=== PATIENT | male | born 1960 | race Caucasian/White ===

== ENCOUNTER 2017-04-18 20:07 | Emergency (ER) | payer MEDICARE, MEDICAID ==
[2017-04-18] MEDS ORDERED: ACETAMINOPHEN 325 MG TABLET PO ONE (20:59)
--- NOTE | 2017-04-18 21:30 | ER Document Report ---
ED Extremity Problem, Upper - General Chief Complaint: Arm Injury Stated Complaint: ARM PAIN Time Seen by Provider: 04/18/17 20:52 Information source: Parent TRAVEL OUTSIDE OF THE [place] IN LAST 30 DAYS: No - HPI Patient complains to provider of: Injury - hit his arm on a tool box, h/o osteoporosis, Right, Forearm Onset: Just prior to arrival Recent injury: Yes Where: Home Quality of pain: Achy Exacerbated by: Movement Relieved by: Rest - Related Data Allergies/Adverse Reactions: No Known Allergies Allergy (Verified 04/18/17 20:31) Past Medical History - Social History Smoking Status: Never Smoker Chew tobacco use (# tins/day): No Frequency of alcohol use: None Drug Abuse: None Family History: None Patient has suicidal ideation: No Patient has homicidal ideation: No - Past Medical History Cardiac Medical History: Denies: Hx Heart Attack, Hx Hypertension Pulmonary Medical History: Denies: Hx Asthma Neurological Medical History: Denies: Hx Cerebrovascular Accident, Hx Seizures Endocrine Medical History: Reports: Hx Diabetes Mellitus Type 1 Renal/ Medical History: Denies: Hx Peritoneal Dialysis GI Medical History: Denies: Hx Hepatitis, Hx Hiatal Hernia, Hx Ulcer Infectious Medical History: Denies: Hx Hepatitis Past Surgical History: Reports: Hx Orthopedic Surgery - bilat wrist, Hx Urinary Tract Surgery - suprapubic cath. Denies: Hx Open Heart Surgery, Hx Pacemaker - Immunizations Hx Diphtheria, Pertussis, Tetanus Vaccination: No Review of Systems - Review of Systems Constitutional: No symptoms reported Musculoskeletal: See HPI -: Yes All other systems reviewed and negative Physical Exam - Vital signs Vitals: Temp Pulse Resp BP Pulse Ox 98.4 F 118 H 16 140/90 H 100 04/18/17 20:31 04/18/17 20:31 04/18/17 20:31 04/18/17 20:31 04/18/17 20:31 - General General appearance: Appears well, Alert In distress: None - Cardiovascular Pulses: Normal: Radial Normal capillary refill: Yes - Extremities General upper extremity: Normal inspection, Tender - over mid shaft ulna without deformity, Normal strength, Normal temperature. 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 History of intellectual disability so history is per mother. Evidence of midshaft ulnar fracture nondisplaced on the right forearm. Patient placed in a reverse sugar tong splint and sling. Patient discharged home and to follow-up with their orthopedist. - Vital Signs Vital signs: Temp Pulse Resp BP Pulse Ox 98.4 F 118 H 16 140/90 H 100 04/18/17 20:31 04/18/17 20:31 04/18/17 20:31 04/18/17 20:31 04/18/17 20:31 - Diagnostic Test Radiology reviewed: Image reviewed, Reports reviewed Discharge - Discharge Clinical Impression: Ulnar fracture Qualifiers: Encounter type: initial encounter Ulna location: shaft Fracture type: closed Fracture morphology: transverse Fracture alignment: nondisplaced Laterality: right Qualified Code(s): S52.224A - Nondisplaced transverse fracture of shaft of right ulna, initial encounter for closed fracture Condition: Good Disposition: HOME, SELF-CARE Instructions: Fractured Radius and Ulna ([facility]), Splint Precautions ([facility]), Acetaminophen, Use of Vlvw-Odw-Rrctflh Ibuprofen ([facility]) Additional Instructions: Please make an appointment to see your orthopedist to be seen in 1-2 weeks Forms: Elevated Blood Pressure Referrals: AMEYA SHIPLEY MD [Primary Care Provider] - Follow up as needed
--- NOTE | 2017-04-18 21:37 | RADIOLOGY REPORT (SQ) ---
EXAM DESCRIPTION: FOREARM RIGHT COMPLETED DATE/TIME: 04/18/2017 9:16 pm REASON FOR STUDY: hit his arm on a metal tool box, pain COMPARISON: None. NUMBER OF VIEWS: Two views. TECHNIQUE: Two radiographic images acquired of the right forearm, including elbow and wrist in at le ast one projection. LIMITATIONS: None. FINDINGS: MINERALIZATION: Normal. BONES: Multiple nondisplaced fractures are seen involving the distal shaft of the right ulna. No sig nificant displacement of the fracture fragments identified. No other fractures are identified. SOFT TISSUES: Soft tissue swelling about the forearm. No radiopaque foreign body pre OTHER: No other significant finding. IMPRESSION: Nondisplaced fractures involving the distal shaft of the right ulna. No other fractures identified. Soft tissue swelling about the forearm. No radiopaque foreign body. TECHNICAL DOCUMENTATION: JOB ID: [id number] [employer]- All Rights Reserved
[2017-04-18 22:11] VITALS: BP 138/76
== END 2017-04-18 22:08 | disposition home or self-care (01) ==
LOC: ER 20:07
DX: S52.224A Nondisplaced transverse fracture of shaft of right ulna, initial encounter for closed fracture (principal); W22.09XA Striking against other stationary object, initial encounter; Y92.009 Unspecified place in unspecified non-institutional (private) residence as the place of occurrence of the external cause; E10.9 Type 1 diabetes mellitus without complications
CPT/HCPCS: 99283; 73090; L3650; A9270

== ENCOUNTER 2019-07-15 11:07 | Emergency (ER) | payer MEDICARE, MEDICAID ==
[2019-07-15] MEDS ORDERED: NORMAL SALINE 1000 ML 1,000 ML IV ONE (11:27)
--- NOTE | 2019-07-15 11:29 | ER Document Report ---
ED Medical Screen (RME) - General Chief Complaint: Urinary Problem Stated Complaint: UNABLE TO URINATE Time Seen by Provider: 07/15/19 11:26 Primary Care Provider: AMEYA SHIPLEY MD [Primary Care Provider] - Follow up as needed Information source: Parent Notes: Patient presents with family member with reports of leg cramps for the past 3 days to the right thigh. Patient also has had elevated blood sugar running in the 2-300 range which is not normal for him. Patient has also had decreased urine output to his suprapubic catheter bag. Family states that patient did void from the penis. hx: Mild cerebral palsy, MR, diabetes, tremor, suprapubic cath, neurogenic bladder I have greeted and performed a rapid initial assessment of this patient. A comprehensive ED assessment and evaluation of the patient, analysis of test results and completion of the medical decision making process will be conducted by additional ED providers. TRAVEL OUTSIDE OF THE [place] IN LAST 30 DAYS: No - Related Data Allergies/Adverse Reactions: No Known Allergies Allergy (Verified 07/15/19 11:25) Past Medical History - Social History Chew tobacco use (# tins/day): No Frequency of alcohol use: None Drug Abuse: None - Past Medical History Cardiac Medical History: Denies: Hx Heart Attack, Hx Hypertension Pulmonary Medical History: Denies: Hx Asthma Neurological Medical History: Denies: Hx Cerebrovascular Accident, Hx Seizures Endocrine Medical History: Reports: Hx Diabetes Mellitus Type 1 Renal/ Medical History: Denies: Hx Peritoneal Dialysis GI Medical History: Denies: Hx Hepatitis, Hx Hiatal Hernia, Hx Ulcer Infectious Medical History: Denies: Hx Hepatitis Past Surgical History: Reports: Hx Orthopedic Surgery - bilat wrist, Hx Urinary Tract Surgery - suprapubic cath. Denies: Hx Open Heart Surgery, Hx Pacemaker - Immunizations Hx Diphtheria, Pertussis, Tetanus Vaccination: No Physical Exam - General Notes: Right thigh tenderness Doctor's Discharge - Discharge Referrals: AMEYA SHIPLEY MD [Primary Care Provider] - Follow up as needed
[2019-07-15 12:27] LABS: VENOUS BLOOD BASE EXCESS 2.5 mmol/L; VENOUS BLOOD HCO3 27.3 mmol/L (20-32); VENOUS BLOOD PCO2 42.6 mmHg (35-63); VENOUS BLOOD PH 7.42 (7.30-7.42)
[2019-07-15 12:33] LABS: ABSOLUTE EOSINOPHILS # (AUTO) 0.2 10^3/uL (0.0-0.6); ABSOLUTE LYMPHOCYTES (AUTO) 1.6 10^3/uL (0.5-4.7); ABSOLUTE MONOCYTES (AUTO) 0.8 10^3/uL (0.1-1.4); ABSOLUTE NEUT (AUTO) 5.9 10^3/uL (1.7-8.2); BASOPHILS % (AUTO) 0.5 % (0-2); EOSINOPHILS % (AUTO) 1.8 % (0-6); HEMATOCRIT 45.5 % (37.9-51.0); HEMOGLOBIN 14.9 g/dL (13.5-17.0); LYMPHOCYTES % (AUTO) 18.6 % (13-45); MEAN CORPUSCULAR HEMOGLOBIN 27.8 pg (27.0-33.4); MEAN CORPUSCULAR HGB CONC 32.8 g/dL (32.0-36.0); MEAN CORPUSCULAR VOLUME 85 fl (80-97); MONOCYTES % (AUTO) 9.7 % (3-13); PLATELET COUNT 208 10^3/uL (150-450); RED BLOOD COUNT 5.37 10^6/uL (4.35-5.55); RED CELL DISTRIBUTION WIDTH 14.1 % (11.5-14.0); SEGMENTED NEUTROPHILS % (AUTO) 69.4 % (42-78); TOTAL CELLS COUNTED % (AUTO) 100 %; WHITE BLOOD COUNT 8.6 10^3/uL (4.0-10.5)
[2019-07-15 12:43] LABS: ALBUMIN 4.3 g/dL (3.5-5.0); ALKALINE PHOSPHATASE 136 U/L (38-126); ANION GAP 9 (5-19); ASPARTATE AMINO TRANSFERASE 21 U/L (17-59); BILIRUBIN,DIRECT 0.1 mg/dL (0.0-0.4); BILIRUBIN,TOTAL 0.8 mg/dL (0.2-1.3); BLOOD UREA NITROGEN 18 mg/dL (7-20); CALCIUM 10.1 mg/dL (8.4-10.2); CARBON DIOXIDE 29 mmol/L (22-30); CHLORIDE 101 mmol/L (98-107); CREATINE KINASE 51 U/L (55-170); GLUCOSE 289 mg/dL (75-110); POTASSIUM 4.4 mmol/L (3.6-5.0); TOTAL PROTEIN 7.1 g/dL (6.3-8.2)
--- NOTE | 2019-07-15 14:07 | ER Document Report ---
ED General - General Chief Complaint: Urinary Problem Stated Complaint: UNABLE TO URINATE Time Seen by Provider: 07/15/19 11:26 Primary Care Provider: AMEYA SHIPLEY MD [Primary Care Provider] - Follow up in 3-5 days TRAVEL OUTSIDE OF THE [place] IN LAST 30 DAYS: No - HPI Notes: Patient is a 58-year-old male with cerebral palsy and mild MR that presents to the emergency department for chief complaint of decreased urination and hyperglycemia. Patient has a suprapubic Collins catheter for history of neurogenic bladder. His mother is providing HPI. He has reportedly had decreased urine output into the catheter and has voided from his urethra as well. He has not had any associated fevers, chills, nausea or vomiting. She states that currently his catheter bag seems full like normal. Patient has also been complaining of cramping in his right thigh for the last 3 days. The cramping is sharp and intermittent. He has had relief with Tylenol, ibuprofen and massage at home. Patient's mother is concerned that his blood sugars have been greater than 200 for the last 3 days as well. He has insulin-dependent diabetes and has been taking his medications as prescribed. Past Medical History:Mild cerebral palsy, MR, diabetes, tremor, suprapubic cath, neurogenic bladder Past Surgical History: Superpubic catheter Social History: Lives with mother who provides care. No tobacco or alcohol use Family History: Reviewed and noncontributory for presenting illness Allergies: Reviewed, see documented allergy list. REVIEW OF SYSTEMS: Unable to obtain because of MR PHYSICAL EXAMINATION: Vital signs reviewed, nursing noted reviewed. GENERAL: Well-appearing, well-nourished and in no acute distress. HEAD: Atraumatic, normocephalic. EYES: Eyes appear normal, extraocular movements intact, sclera anicteric, conjunctiva are normal. ENT: nares patent, oropharynx clear without exudates. Moist mucous membranes. NECK: Normal range of motion, supple without lymphadenopathy LUNGS: Breath sounds clear to auscultation bilaterally and equal. No wheezes rales or rhonchi. HEART: Regular rate and rhythm without murmurs ABDOMEN: Soft, nontender, normoactive bowel sounds. No rebound, guarding, or rigidity. No masses appreciated. EXTREMITIES: Anterior and lateral right thigh tenderness and muscle spasm with normal range of motion of right hip knee and ankle. No long bone deformity or tenderness. No pitting or edema. NEUROLOGICAL: No focal neurological deficits. Moves all extremities spontaneously Motor and sensory grossly intact on exam. PSYCH: Normal mood, normal affect. SKIN: Warm, Dry, normal turgor, no rashes or lesions noted on exposed skin - Related Data Allergies/Adverse Reactions: No Known Allergies Allergy (Verified 07/15/19 11:25) Past Medical History - General Information source: Parent - Social History Smoking Status: Never Smoker Chew tobacco use (# tins/day): No Frequency of alcohol use: None Drug Abuse: None Family History: None Patient has suicidal ideation: No Patient has homicidal ideation: No - Past Medical History Cardiac Medical History: Denies: Hx Heart Attack, Hx Hypertension Pulmonary Medical History: Denies: Hx Asthma Neurological Medical History: Denies: Hx Cerebrovascular Accident, Hx Seizures Endocrine Medical History: Reports: Hx Diabetes Mellitus Type 1 Renal/ Medical History: Denies: Hx Peritoneal Dialysis GI Medical History: Denies: Hx Hepatitis, Hx Hiatal Hernia, Hx Ulcer Infectious Medical History: Denies: Hx Hepatitis Past Surgical History: Reports: Hx Orthopedic Surgery - bilat wrist, Hx Urinary Tract Surgery - suprapubic cath. Denies: Hx Open Heart Surgery, Hx Pacemaker - Immunizations Hx Diphtheria, Pertussis, Tetanus Vaccination: No Course - Re-evaluation Re-evalutation: 07/15/19 14:17 Vitals reviewed. No signs reviewed. Patient is alert and in no acute distress. Currently he denies having any pain in his right leg but does have some muscle spasms in the thigh and IT band. I counseled his mother on heat and stretching techniques that she can do while patient is seated. He is able to ambulate with a cane. Patient's lab work shows no severe electrolyte derangement or renal failure. He has a full urine catheter bag and UA has been ordered to evaluate for infection. 07/15/19 14:50 Urinalysis has 13 WBCs and small amount of leuks. There is no squamous contamination. Patient does have indwelling catheter which increases risk of infection. Some of his hyperglycemia may be related to early UTI. Patient will be started on Keflex. He was counseled on increasing the amount of water and decreasing the amount of soda he is drinking. Patient is otherwise well- appearing and will continue to follow with his PCP as an outpatient. He will return for new or worsening symptoms. Laboratory 07/15/19 07/15/19 07/15/19 12:15 12:15 12:15 WBC 8.6 RBC 5.37 Hgb 14.9 Hct 45.5 MCV 85 MCH 27.8 MCHC 32.8 RDW 14.1 H Plt Count 208 Lymph % (Auto) 18.6 [place] % (Auto) 9.7 Eos % (Auto) 1.8 Baso % (Auto) 0.5 Absolute Neuts (auto) 5.9 Absolute Lymphs (auto) 1.6 Absolute Monos (auto) 0.8 Absolute Eos (auto) 0.2 Absolute Basos (auto) 0.0 Seg Neutrophils % 69.4 VBG pH 7.42 VBG pCO2 42.6 VBG HCO3 27.3 VBG Base Excess 2.5 Sodium 139.1 Potassium 4.4 Chloride 101 Carbon Dioxide 29 Anion Gap 9 BUN 18 Creatinine 0.77 Est GFR ( Amer) > 60 Est GFR (MDRD) Non-Af > 60 Glucose 289 H Calcium 10.1 Total Bilirubin 0.8 Direct Bilirubin 0.1 Neonat Total Bilirubin Not Reportable Neonat Direct Bilirubin Not Reportable Neonat Indirect Bili Not Reportable AST 21 ALT 36 Alkaline Phosphatase 136 H Creatine Kinase 51 L Total Protein 7.1 Albumin 4.3 Urine Color Urine Appearance Urine pH Ur Specific [place] Urine Protein Urine Glucose (UA) Urine Ketones Urine Blood Urine Nitrite Urine Bilirubin Urine Urobilinogen Ur Leukocyte Esterase Urine WBC (Auto) Urine RBC (Auto) Squamous Epi Cells Auto Urine Mucus (Auto) Urine Ascorbic Acid 07/15/19 14:24 WBC RBC Hgb Hct MCV MCH MCHC RDW Plt Count Lymph % (Auto) [place] % (Auto) Eos % (Auto) Baso % (Auto) Absolute Neuts (auto) Absolute Lymphs (auto) Absolute Monos (auto) Absolute Eos (auto) Absolute Basos (auto) Seg Neutrophils % VBG pH VBG pCO2 VBG HCO3 VBG Base Excess Sodium Potassium Chloride Carbon Dioxide Anion Gap BUN Creatinine Est GFR ( Amer) Est GFR (MDRD) Non-Af Glucose Calcium Total Bilirubin Direct Bilirubin Neonat Total Bilirubin Neonat Direct Bilirubin Neonat Indirect Bili AST ALT Alkaline Phosphatase Creatine Kinase Total Protein Albumin Urine Color YELLOW Urine Appearance SLIGHTLY-CLOUDY Urine pH 7.0 Ur Specific [place] 1.029 Urine Protein NEGATIVE Urine Glucose (UA) >=500 H Urine Ketones NEGATIVE Urine Blood NEGATIVE Urine Nitrite NEGATIVE Urine Bilirubin NEGATIVE Urine Urobilinogen NEGATIVE Ur Leukocyte Esterase SMALL H Urine WBC (Auto) 13 Urine RBC (Auto) 2 Squamous Epi Cells Auto <1 Urine Mucus (Auto) RARE Urine Ascorbic Acid NEGATIVE - Laboratory Result Diagrams: 07/15/19 12:15 07/15/19 12:15 Laboratory results interpreted by me: 07/15/19 07/15/19 07/15/19 12:15 12:15 14:24 RDW 14.1 H Glucose 289 H Alkaline Phosphatase 136 H Creatine Kinase 51 L Urine Glucose (UA) >=500 H Ur Leukocyte Esterase SMALL H Discharge - Discharge Clinical Impression: Right thigh pain, Hyperglycemia, Acute UTI Condition: Stable Disposition: HOME, SELF-CARE Instructions: Leg Cramps ([facility]), Cephalexin ([facility]), Urinary Tract Infection ([facility]) Additional Instructions: Please return to the emergency department if you have any worsening, or concern of your symptoms. Please return to the emergency department if you develop chest pain, difficulty breathing, severe abdominal pain, or ongoing vomiting. Please follow-up with your primary care physician in 2-3 days and any other recommended physicians. If prescribed, take all medications as directed. If you have any questions or concerns do not hesitate to return the emergency department for evaluation. Apply heat to patient's right leg for 15 to 20 minutes at a time and then perform stretches to help with muscle spasms. Encourage patient to get up and ambulate as often as tolerated. Prescriptions: Cephalexin Monohydrate [Keflex 500 mg Capsule] 500 mg PO BID 5 Days capsule Methocarbamol [Robaxin 500 mg Tablet] 1,000 mg PO QID PRN #80 tablet PRN Reason: muscle spasm Referrals: AMEYA SHIPLEY MD [Primary Care Provider] - Follow up in 3-5 days
[2019-07-15 14:47] LABS: APPEARANCE,URINE SLIGHTLY-CLOUDY; BILIRUBIN,URINE NEGATIVE (NEGATIVE); COLOR,URINE YELLOW; GLUCOSE, URINE >=500 mg/dL (NEGATIVE); KETONES,URINE NEGATIVE (NEGATIVE); LEUKOCYTE ESTERASE,URINE SMALL (NEGATIVE); NITRITE,URINE NEGATIVE (NEGATIVE); PROTEIN,URINE NEGATIVE (NEGATIVE); URINE SPECIFIC GRAVITY 1.029; UROBILINOGEN,URINE NEGATIVE mg/dL (<2.0)
[2019-07-15 15:23] VITALS: BP 143/67
== END 2019-07-15 15:24 | disposition home or self-care (01) ==
LOC: ER 11:07
DX: E10.65 Type 1 diabetes mellitus with hyperglycemia (principal); N39.0 Urinary tract infection, site not specified; M79.651 Pain in right thigh; R39.198 Other difficulties with micturition; R33.9 Retention of urine, unspecified; M62.838 Other muscle spasm; Z79.4 Long term (current) use of insulin; G80.9 Cerebral palsy, unspecified
CPT/HCPCS: 36415; 80053; 81001; 82550; 82803; 85025; 87086; 87088; 87186; 99283